=== PATIENT | female | born 1990 | race Caucasian/White ===

== ENCOUNTER 2017-09-11 11:31 | Emergency (ER) | payer OTHER, SELFPAY ==
[2017-09-11 11:33] VITALS: BMI 21.4
[2017-09-11 11:36] VITALS: BP 148/117; PULSE 142; RESP 26; TEMP 36.7; O2SAT 96; BMI 48.0
--- NOTE | 2017-09-11 11:40 | HMH.EDALLER ---
ED Disposition Clinical Impression: Allergic reaction, Dysuria, First trimester Disposition: Home, Self-Care Condition on Discharge: Good Additional Instructions: 1- benary and zantac as needed. 2- avoid amcrobid. 3- start PNV 4- see OB for follow up 5- return as needed. - Critical Care Critical Care Time: No Attestation: On , the high probability of a clinically significant, sudden or life threatening deterioration of the following system(s) required my full and direct attention, intervention and personal management. The time I documented below is in addition to time spent performing reported procedures but includes the following listed in this critical care notation. Medical Decision Making - Medical Records Medical records reviewed: Yes: I reviewed the patient's medical records. Vital Signs: 09/11/17 11:36 Temperature 98.1 F Temperature Source Oral Pulse Rate [Right Brachial] 142 H Respiratory Rate 26 H Blood Pressure [Right Arm] 148/117 Blood Pressure Mean [Right Arm] 127 Blood Pressure Source [Right Arm] Automatic Cuff Blood Pressure Position [Right Arm] Sitting 02 Sat by Pulse Oximetry 96 Oxygen Delivery Method Room Air - Lab Data Lab Results 09/11/17 11:30: WBC 12.3 H, RBC 4.57, Hgb 14.0, Hct 41.3, MCV 90.5, MCH 30.7, MCHC 33.9, RDW 12.5, Plt Count 332, MPV 8.2, Neut % (Auto) 43.2, Lymph % (Auto) 50.7 H, [place] % (Auto) 3.4, Eos % (Auto) 2.2, Baso % (Auto) 0.5, Neut # (Auto) 5.3, Lymph # (Auto) 6.3 H, [place] # (Auto) 0.4, Eos # (Auto) 0.3, Baso # (Auto) 0.1, Total Counted 100, Neutrophils % (Manual) 43, Lymphocytes % (Manual) 43, Atypical Lymphs % 11.0, Monocytes % (Manual) 2, Eosinophils % (Manual) 1, Platelet Estimate Normal, RBC Morphology Normal 09/11/17 11:30: Sodium 140, Potassium 3.4 L, Chloride 103, Carbon Dioxide 23, Anion Gap 17.4 H, BUN 9, Creatinine 1.05 H, Estimated Creat Clear 66, Estimated GFR 62, Est GFR ( Amer) 76, Glucose 169 H, Calcium 8.7, Total Bilirubin 0.6, AST 12 L, ALT 25, Alkaline Phosphatase 92, Total Protein 7.4, Albumin 4.2, Globulin 3.2, Albumin/Globulin Ratio 1.3, HCG, Quant 32 H 09/11/17 12:41: Urine Color Yellow, Urine Appearance Clear, Urine pH 6.0, Ur Specific [place] 1.015, Urine Protein Negative, Urine Glucose (UA) Negative, Urine Ketones Negative, Urine Blood Negative, Urine Nitrate Negative, Urine Bilirubin Negative, Urine Urobilinogen 0.2, Ur Leukocyte Esterase Negative, Urine RBC None, Urine WBC 3-5, Ur Squamous Epith Cells 5-10, Urine Bacteria Trace, Urine Mucus Trace 09/11/17 12:41: Urine HCG, Qual Positive Result diagrams: 09/11/17 11:30 09/11/17 11:30 Orders (Tests/Meds): ED MEDICATIONS Discontinued Medications Generic Name Dose Route Start Last Admin Trade Name Freq PRN Reason Stop Dose Admin Diphenhydramine HCl 50 mg 09/11/17 11:34 09/11/17 11:45 Benadryl 50mg/1ml Vial IV 09/11/17 11:35 50 mg ONCE ONE Administration Famotidine 20 mg 09/11/17 11:34 09/11/17 11:46 Pepcid 20mg/2ml Vial IV 09/11/17 11:35 20 mg ONCE ONE Administration Methylprednisolone Sodium Succinate 125 mg 09/11/17 11:34 09/11/17 11:46 Solu-Medrol 125mg/2ml Vial IV 09/11/17 11:35 125 mg ONCE ONE Administration Metoclopramide HCl 10 mg 09/11/17 11:34 09/11/17 11:46 Reglan 10mg/2ml Vial IVP 09/11/17 11:35 10 mg ONCE ONE Administration - ECG Data Tracing #1 Sinus tachycardia 135/min, nonspecific ST and T-wave changes. No acute. ECG initial impression date: 09/11/17 ECG initial impression time: 11:52 - Joe Inquiry Pt receiving controlled substance: No Joe was queried for this patient: No Medical Decision Making Narrative: She refused an in and out cath. Was unable to void so she was given IV fluids. The patient felt better she actually took a nap she had no more symptoms and she was found to be in her first trimester. The patient and her seemed to be happy wi
--- NOTE | 2017-09-11 11:47 | ED_ITS ---
ED Disposition Clinical Impression: Allergic reaction, Dysuria, First trimester Disposition: Home, Self-Care Condition on Discharge: Good Additional Instructions: 1- benary and zantac as needed. 2- avoid amcrobid. 3- start PNV 4- see OB for follow up 5- return as needed. - Critical Care Critical Care Time: No Attestation: On , the high probability of a clinically significant, sudden or life threatening deterioration of the following system(s) required my full and direct attention, intervention and personal management. The time I documented below is in addition to time spent performing reported procedures but includes the following listed in this critical care notation. Medical Decision Making - Medical Records Medical records reviewed: Yes: I reviewed the patient's medical records. Vital Signs: 09/11/17 11:36 Temperature 98.1 F Temperature Source Oral Pulse Rate [Right Brachial] 142 H Respiratory Rate 26 H Blood Pressure [Right Arm] 148/117 Blood Pressure Mean [Right Arm] 127 Blood Pressure Source [Right Arm] Automatic Cuff Blood Pressure Position [Right Arm] Sitting 02 Sat by Pulse Oximetry 96 Oxygen Delivery Method Room Air - Lab Data Lab Results 09/11/17 11:30: WBC 12.3 H, RBC 4.57, Hgb 14.0, Hct 41.3, MCV 90.5, MCH 30.7, MCHC 33.9, RDW 12.5, Plt Count 332, MPV 8.2, Neut % (Auto) 43.2, Lymph % (Auto) 50.7 H, [place] % (Auto) 3.4, Eos % (Auto) 2.2, Baso % (Auto) 0.5, Neut # (Auto) 5.3, Lymph # (Auto) 6.3 H, [place] # (Auto) 0.4, Eos # (Auto) 0.3, Baso # (Auto) 0.1, Total Counted 100, Neutrophils % (Manual) 43, Lymphocytes % (Manual) 43, Atypical Lymphs % 11.0, Monocytes % (Manual) 2, Eosinophils % (Manual) 1, Platelet Estimate Normal, RBC Morphology Normal 09/11/17 11:30: Sodium 140, Potassium 3.4 L, Chloride 103, Carbon Dioxide 23, Anion Gap 17.4 H, BUN 9, Creatinine 1.05 H, Estimated Creat Clear 66, Estimated GFR 62, Est GFR ( Amer) 76, Glucose 169 H, Calcium 8.7, Total Bilirubin 0.6, AST 12 L, ALT 25, Alkaline Phosphatase 92, Total Protein 7.4, Albumin 4.2, Globulin 3.2, Albumin/Globulin Ratio 1.3, HCG, Quant 32 H 09/11/17 12:41: Urine Color Yellow, Urine Appearance Clear, Urine pH 6.0, Ur Specific [place] 1.015, Urine Protein Negative, Urine Glucose (UA) Negative, Urine Ketones Negative, Urine Blood Negative, Urine Nitrate Negative, Urine Bilirubin Negative, Urine Urobilinogen 0.2, Ur Leukocyte Esterase Negative, Urine RBC None, Urine WBC 3-5, Ur Squamous Epith Cells 5-10, Urine Bacteria Trace, Urine Mucus Trace 09/11/17 12:41: Urine HCG, Qual Positive Result diagrams: 09/11/17 11:30 09/11/17 11:30 Orders (Tests/Meds): ED MEDICATIONS Discontinued Medications Generic Name Dose Route Start Last Admin Trade Name Freq PRN Reason Stop Dose Admin Diphenhydramine HCl 50 mg 09/11/17 11:34 09/11/17 11:45 Benadryl 50mg/1ml Vial IV 09/11/17 11:35 50 mg ONCE ONE Administration Famotidine 20 mg 09/11/17 11:34 09/11/17 11:46 Pepcid 20mg/2ml Vial IV 09/11/17 11:35 20 mg ONCE ONE Administration Methylprednisolone Sodium Succinate 125 mg 09/11/17 11:34 09/11/17 11:46 Solu-Medrol 125mg/2ml Vial IV 09/11/17 11:35 125 mg ONCE ONE Administration Metoclopramide HCl 10 mg 09/11/17 11:34 09/11/17 11:46 Reglan 10mg/2ml Vial IVP 09/11/17 11:35 10 mg ONCE ONE Adminis
[2017-09-11 11:57] LABS: Basophils # 0.1 K/mm3 (0-0.2); Basophils % 0.5 % (0.1-2.0); Eosinophils # 0.3 K/mm3 (0.0-0.4); Eosinophils % 2.2 % (0.1-12.0); Hematocrit 41.3 % (37.0-47.0); Lymphocytes # 6.3 K/mm3 (0.7-4.5); Lymphocytes % 50.7 K/mm3 (10-50); Mean Corpuscular HGB Conc 33.9 g/dL (31.8-35.4); Mean Corpuscular Hemoglobin 30.7 pg (27.0-31.2); Mean Corpuscular Volume 90.5 fl (81-99); Mean Platelet Volume 8.2 fl (7.4-10.4); Monocytes # 0.4 K/mm3 (0.1-1.0); Monocytes % 3.4 % (1.7-9.3); Neutrophils # 5.3 K/mm3 (1.8-7.8); Neutrophils % 43.2 % (37.0-80.0); Platelet Count 332 K/mm3 (142-424); Red Blood Count 4.57 M/mm3 (4.20-5.40); Red Cell Distribution Width 12.5 % (11.5-17.5); White Blood Count 12.3 K/mm3 (4.8-10.8)
[2017-09-11 12:06] LABS: MANUAL DIFFERENTIAL MANUAL DIFFERENTIAL (MANUAL DIFF)
[2017-09-11 12:15] LABS: Alanine Aminotransferase 25 U/L (12-78); Albumin Level 4.2 gm/dL (3.4-5.0); Albumin/Globulin Ratio 1.3 (1.1-1.8); Alkaline Phosphatase 92 U/L (46-116); Anion Gap 17.4 mEq/L (5-15); Aspartate Amino Transferase 12 U/L (15-37); Bilirubin,Total 0.6 mg/dL (0.2-1.0); Blood Urea Nitrogen 9 mg/dL (7-18); Calcium 8.7 mg/dL (8.5-10.1); Carbon Dioxide 23 mmol/L (21.0-32.0); Chloride 103 mmol/L (98-107); Creatinine Clearance Estimated 66 mL/min (0-300); Creatinine,Serum 1.05 mg/dL (0.55-1.02); Estimated Glomerular Filt Rate 62 ml/min (>60); GFR (African American) 76 ML/MIN (>60); Globulin 3.2 gm/dl (1.3-3.2); Glucose 169 mg/dL (74-106); Potassium 3.4 mmoL/L (3.5-5.1); Sodium 140 mmol/L (136-145); Total Protein,Serum 7.4 gm/dL (6.4-8.2)
[2017-09-11 12:19] LABS: HCG,Quantitative 32 mIU/mL
[2017-09-11 12:24] LABS: Eosinophils % 1 % (0-3); Lymphocytes % 43 % (10-50); Monocytes % 2 % (2-9); Neutrophils % 43 % (42-76); Platelet Estimate Normal; RBC Morphology Normal; Total Cells Counted 100
[2017-09-11 12:49] LABS: Microscopic, Urine URINE MICROSCOPIC (MICROSCOPIC)
[2017-09-11 12:52] LABS: Appearance,Urine CLEAR (Clear); Bilirubin,Urine Negative (Negative); Blood, Urine Negative (Negative); Color,Urine YELLOW (Yellow); Glucose,Urine (UA) Negative (Negative); Ketones,Urine Negative (Negative); Leukocyte Esterase,Urine Negative (Negative); Nitrate,Urine Negative (Negative); Protein,Urine Negative (Negative); Specific Gravity, Urine 1.015 (1.005-1.030); Urobilinogen,Urine 0.2 EU/dl (0.2)
[2017-09-11 12:58] LABS: Urine Pregnancy, HCG Qual. Positive (Negative)
[2017-09-11 13:12] LABS: Bacteria,Urine Trace /lpf; Mucus,Urine Trace /lpf
[2017-09-11 13:53] VITALS: BP 135/82; PULSE 85; RESP 18; TEMP 36.8; O2SAT 98
== END 2017-09-11 13:51 | disposition home or self-care (01) ==
PROVIDERS: Emergency Provider Emergency Medicine; Family Provider Internal Medicine Adolescent Medicine; PCP Internal Medicine Adolescent Medicine
DX: R22.0 Localized swelling, mass and lump, head (principal); T37.8X5A Adverse effect of other specified systemic anti-infectives and antiparasitics, initial encounter; R30.0 Dysuria; R00.2 Palpitations; Z32.01 Encounter for pregnancy test, result positive
CPT/HCPCS: 80053; 81001; 81025; 84702; 85007; 85025; 93005; 96365; 99281

== ENCOUNTER → 2017-09-13 10:36 | Outpatient (CLI) | payer OTHER, SELFPAY ==
[2017-09-13 11:01] LABS: Basophils # 0.1 K/mm3 (0-0.2); Basophils % 0.5 % (0.1-2.0); Eosinophils # 0.1 K/mm3 (0.0-0.4); Eosinophils % 0.7 % (0.1-12.0); Hematocrit 38.2 % (37.0-47.0); Hemoglobin 12.7 g/dL (12.2-16.2); Lymphocytes # 2.6 K/mm3 (0.7-4.5); Lymphocytes % 25.7 K/mm3 (10-50); Mean Corpuscular HGB Conc 33.2 g/dL (31.8-35.4); Mean Corpuscular Hemoglobin 30.5 pg (27.0-31.2); Mean Corpuscular Volume 91.8 fl (81-99); Monocytes # 0.4 K/mm3 (0.1-1.0); Monocytes % 3.9 % (1.7-9.3); Neutrophils # 6.9 K/mm3 (1.8-7.8); Neutrophils % 69.1 % (37.0-80.0); Platelet Count 250 K/mm3 (142-424); Red Blood Count 4.16 M/mm3 (4.20-5.40); Red Cell Distribution Width 12.6 % (11.5-17.5)
[2017-09-13 12:22] LABS: HCG,Quantitative 113 mIU/mL
[2017-09-14 07:14] LABS: HIV Screen 4th Generation wRfx Non Reactive (Non Reactive)
[2017-09-17 12:13] LABS: Hepatitis B Surface Antigen Negative (Negative); Hepatitis C Antibody <0.1 s/co ratio (0.0-0.9); Rapid Plasma Reagin Ab Titer Non Reactive (NonRea<1:1); Rubella Antibodies, IgG 1.61 index (Immune >0.99)
== END ==
PROVIDERS: Family Provider Internal Medicine Adolescent Medicine; PCP Internal Medicine Adolescent Medicine; Visit Provider Nurse Practitioner Obstetrics & Gynecology
DX: Z34.90 Encounter for supervision of normal pregnancy, unspecified, unspecified trimester (principal)
CPT/HCPCS: 36415; 84702; 85025; 86592; 86703; 86762; 86850; 87340; 87380; G0432

== ENCOUNTER → 2017-10-11 16:21 | Outpatient (CLI) | payer OTHER, SELFPAY ==
--- NOTE | 2017-10-11 16:24 | US_ITS ---
US OB transvaginal HISTORY: Early OB ultrasound for dates ITS.REASON: US OB- Dates ORDERING PHYSICIAN: Boy Lazar MD PATIENT AGE: 27 years COMPARISON: None FINDINGS: An intrauterine gestational sac is present with a pole with a crown-rump length of 1.4cm correlating to gestational age of 7 weeks 5 days. heart tones are present with an FHR of 164 bpm's. Yolk sac is noted. The amnion and chorion have not yet fused. Adnexa: Adnexa. IMPRESSION: Live intrauterine gestation at 7 weeks 5 days. Estimated due date by ultrasound is 05/25/2018.
== END ==
PROVIDERS: Family Provider Internal Medicine Adolescent Medicine; PCP Internal Medicine Adolescent Medicine; Visit Provider Nurse Practitioner Obstetrics & Gynecology
DX: O26.841 Uterine size-date discrepancy, first trimester (principal)
CPT/HCPCS: 76830

== ENCOUNTER → 2017-12-08 16:18 | Outpatient (CLI) | payer OTHER, SELFPAY ==
[2017-12-14 00:15] LABS: AFP Value 56.3 ng/mL (.); DIA MoM 3.05 (.); DSR (Second Trimester) 1 IN 1419 (.); OSBR Risk 1 IN 2155 (.); Results Report (.); hCG MoM 2.75 (.); uE3 MoM 1.19 (.); uE3 Value 0.95 ng/mL (.)
[2017-12-14 15:16] LABS: Gestat. Age Based On EDD (.)
== END ==
PROVIDERS: Visit Provider Nurse Practitioner Obstetrics & Gynecology
DX: Z34.90 Encounter for supervision of normal pregnancy, unspecified, unspecified trimester (principal); Z3A.16 16 weeks gestation of pregnancy
CPT/HCPCS: 36415; 82106

== ENCOUNTER → 2018-01-06 15:32 | Outpatient (CLI) | payer OTHER, SELFPAY ==
--- NOTE | 2018-01-06 15:33 | US_ITS ---
US OB /maternal detail: INDICATION: ITS.REASON: US OB Complete 20wk+ Anatomy scan ORDERING PHYSICIAN: Boy Lazar MD PATIENT AGE: 27 years TECHNIQUE: ultrasound transabdominal scanning. COMPARISON: No previous relevant studies. FINDINGS: Single viable intrauterine gestation. Breech position. Placenta: Anterior placenta grade 1. There is a posterior accessory lobe There is average amount fluid. The cervix appears satisfactory. Closed and measuring 3 cm in length. Complete survey performed and was unremarkable on the submitted images as in PACS. No discrete anomalies identified on survey imaging by technologist. Active fetus. Three-vessel cord with satisfactory umbilical cord insertion. 4- chamber heart noted. Survey of brain & ventricles. Face and neck survey unremarkable. Diaphragm and chest views unremarkable. Abdomen: Both kidneys noted and unremarkable. Stomach noted and satisfactory. Spine: Survey of the spine satisfactory with no anomalies identified nor imaged. Both arms and legs noted. Amniotic Fluid: Adequate. Maternal adnexa: No significant findings. Measurements: Average ultrasound age 20w2d. Gestational Age 20w1d. Estimated due date by ultrasound age 1005/24/2018. Estimated weight 328 grams. This is 39th percentile based on estimated due date BPD = 20w5d OFD = 20w4d HC = 19w6d AC = 20w1d FL = 20w1d Heart Rate = 150 bpm Cerebellum = 20w0d Humerus = 20w4d HC/AC is 1.17 (1.09-1.26). CI is 80%. FL/BPD is 67%. FL/AC is 22%. IMPRESSION: There is a live intrauterine gestation in breech presentation at 20 weeks 2 days with an estimated due date by ultrasound of 05/24/2018. All parameters correlate. No obvious anomalies. Please see above for detail
== END ==
PROVIDERS: Family Provider Internal Medicine Adolescent Medicine; PCP Internal Medicine Adolescent Medicine; Visit Provider Nurse Practitioner Obstetrics & Gynecology
DX: Z36.0 Encounter for antenatal screening for chromosomal anomalies (principal)
CPT/HCPCS: 76811

== ENCOUNTER 2018-04-19 14:36 | Inpatient (IN) ==
[2018-04-19 15:38] LABS: Basophils % 0.3 % (0.1-2.0); Eosinophils # 0.1 K/mm3 (0.0-0.4); Eosinophils % 0.6 % (0.1-12.0); Hematocrit 36.7 % (37.0-47.0); Hemoglobin 12.7 g/dL (12.2-16.2); Lymphocytes % 19.8 K/mm3 (10-50); Mean Corpuscular HGB Conc 34.5 g/dL (31.8-35.4); Mean Corpuscular Hemoglobin 32.6 pg (27.0-31.2); Mean Corpuscular Volume 94.5 fl (81-99); Mean Platelet Volume 9.6 fl (7.4-10.4); Monocytes # 0.4 K/mm3 (0.1-1.0); Monocytes % 3.7 % (1.7-9.3); Neutrophils # 7.5 K/mm3 (1.8-7.8); Neutrophils % 75.5 % (37.0-80.0); Platelet Count 193 K/mm3 (142-424); Red Blood Count 3.89 M/mm3 (4.20-5.40); Red Cell Distribution Width 13.5 % (11.5-17.5); White Blood Count 9.9 K/mm3 (4.8-10.8)
[2018-04-19 15:44] LABS: Activated Partial Thrombo Time 29.4 seconds (23.6-34.0); Anion Gap 12.7 mEq/L (5-15); Calcium 8.6 mg/dL (8.5-10.1); INR 0.91 (0.9-1.1); Potassium 3.7 mmoL/L (3.5-5.1); Prothrombin Time 9.4 seconds (9.4-11.8); Uric Acid 5.5 mg/dL (2.6-7.2)
--- NOTE | 2018-04-19 17:02 | History & Physical Report ---
OB - H&P: HPI Antepartum - History of Present Illness Chief complaint: -induced hypertension History of present illness: She is a 19-year-old 1 para 0 at 35 weeks gestational age. She was seen in my office today and her blood pressure was 140/100. She has had a mild headache on and off. She has had significant swelling over the last couple of weeks. - History of Present Criteria for establishing EDC:: LMP confirmed by 1st trimester US care: good care Ultrasounds: normal 1st trimester US, normal mid trimester US Obstetrical complications: preeclampsia Medical complications: none [facility] History I have reviewed the patient's past medical history: Yes Medical History: Denies:: Anxiety, Asthma, Depression Other Surgeries: Yes: Colonoscopy, Other. No: Amputation: No Fractures: No - *Social History Smoking Status: Former smoker Alcohol Intake: never Substance Use Type: denies use - Psychiatric History Pschychiatric History:: Denies:: Anxiety, Depression *Family Hx:: Cancer, Diabetes, Heart Attack, Kidney Disease, Hypertension, Hyperlipidemia, Thyroid Disorder Para: 0 Review of Systems - Review of Systems Review of systems:: pertinent systems reviewed and negative unless documented below Meds Home Medications Medication Instructions Recorded Confirmed Type cetirizine 10 mg tablet 10 mg PO ONCE 09/13/17 History multivitamin with minerals-folic 200 mcg PO DAILYDM 09/13/17 History acid 200 mcg chewable tablet diphenhydramine 25 mg capsule 25 mg PO QHS PRN 01/11/18 History ranitidine 150 mg tablet 150 mg PO BID tab 01/11/18 04/19/18 History Ferrous Sulfate 325 mg PO DAILY 04/19/18 History docusate sodium 100 mg capsule 100 mg PO DAILY 04/19/18 History Allergies Allergy/AdvReac Type Severity Reaction Status Date / Time nitrofurantoin Allergy Intermediate Rash Verified 04/19/18 13:57 [From Macrobid] OB - H&P: Exam - Physical Exam Vital signs: Temp Pulse Resp BP Pulse Ox 98.2 F 93 H 20 146/96 98 04/19/18 15:34 04/19/18 15:34 04/19/18 15:34 04/19/18 15:34 04/19/18 15:34 - Constitutional no acute distress - Routine HEENT Exam Head: Present: normocephalic Eye: Present: EOMI, PERRL ENT: Present: mucous membranes moist - Routine Neck Exam Present: supple, full ROM - Routine Respiratory Exam Absent: accessory muscle use (good air entry bilaterally), respiratory distress, wheezes, crackles - Routine Cardiovascular Exam Present: RRR. Absent: murmur - Routine Abdominal Exam Present: soft, normoactive bowel sounds. Absent: tenderness, distended, guarding - Routine Rectal Exam Patient deferred: visual exam, digital exam - Routine Exam Patient deferred: external exam, groin exam, perineal exam - Routine Extremities Exam Present: full ROM. Absent: cyanosis, edema - Routine Skin Exam Present: intact. Absent: cyanosis - Routine Neurological Exam Present: alert, oriented X3, normal reflexes She has no clonus - Routine Psychiatric Exam Present: normal affect OB - Results - Labs Labs: Short CBC 04/19/18 Range/Units 15:10 WBC 9.9 (4.8-10.8) K/mm3 Hgb 12.7 (12.2-16.2) g/dL Hct 36.7 L (37.0-47.0) % Plt Count 193 (142-424) K/mm3 BMP 04/19/18 15:10 Sodium 134 L Potassium 3.7 Chloride 101 Carbon Dioxide 24 BUN 6 L Creatinine 0.61 Glucose 73 L Calcium 8.6 Liver Function 04/19/18 Range/Units 15:10 AST 15 (15-37) U/L ALT 18 (12-78) U/L OB - A/P Antepartum (1) induced hypertension Current visit: Yes Status: Acute - Additional Plan Planning to breastfeed?: Yes Plan: expectant management Additional Information:: She has increased blood pressure in my office. Now that she is here on bedrest her blood pressure has settled somewhat. We will get a 24-hour urine as well as routine PIH blood work. We will continue with close observation. Her blood pressure rises we will consider magnesium sulfate. We will also consider delivery. I have given her steroids as well.
--- NOTE | 2018-04-20 08:47 | Progress Note ---
Internal Medicine - PN: Subj *Date: 04/20/18 *Time: 08:45 Interval history: She has been observed overnight and she seems to be doing a little better. Her blood pressures are in the 120-130 range over 70-80 range on bedrest. She denies any headache. Her blood work was essentially normal. Her uric acid is 5.5 which is slightly elevated. Ultrasound revealed a baby at the 27th percentile with normal mood and good biophysical profile. Nonstress test reactive. Stiff her laboratory investigations are normal. We are awaiting a 24-hour urine. Exam Vital signs and Labs for Last 24 Hours: Temp Pulse Resp BP Pulse Ox 98.2 F 97 H 18 131/75 98 04/19/18 15:34 04/19/18 19:18 04/19/18 19:18 04/19/18 19:18 04/19/18 15:34 Laboratory Results - last 24 hr 04/19/18 15:10: WBC 9.9, RBC 3.89 L, Hgb 12.7, Hct 36.7 L, MCV 94.5, MCH 32.6 H, MCHC 34.5, RDW 13.5, Plt Count 193, MPV 9.6, Neut % (Auto) 75.5, Lymph % (Auto) 19.8, [place] % (Auto) 3.7, Eos % (Auto) 0.6, Baso % (Auto) 0.3, Neut # (Auto) 7.5, Lymph # (Auto) 2.0, [place] # (Auto) 0.4, Eos # (Auto) 0.1, Baso # (Auto) 0.0 04/19/18 15:10: PT 9.4, INR 0.91, APTT 29.4, Fibrinogen 442, D-Dimer 1760 H* 04/19/18 15:10: Sodium 134 L, Potassium 3.7, Chloride 101, Carbon Dioxide 24, Anion Gap 12.7, BUN 6 L, Creatinine 0.61, Estimated Creat Clear 153, Estimated GFR 117, Est GFR ( Amer) 141, Glucose 73 L, Uric Acid 5.5, Calcium 8.6, AST 15, ALT 18 04/19/18 15:10: Blood Type A Positive, Antibody Screen Negative 04/19/18 15:10: Magnesium 1.4 I & O for Last 24 hours: Intake & Output 09/16/18 09/17/18 09/18/18 09/19/18 11:59 11:59 11:59 11:59 Output Total 325 / 325 Balance -325 / -325 Weight 153 lb - Constitutional no acute distress Assessment and Plan (1) induced hypertension Current visit: Yes Status: Acute Category: Medical Code(s): O13.9 - Gestational [-induced] hypertension without significant proteinuria, unspecified trimester - Assessment and plan all Dx Assessment and Plan for all problems:: We will continue with inpatient care today. We will of her 24-hour urine. We may consider sending her home on bedrest if her blood pressure stays normalized.
--- NOTE | 2018-04-21 08:13 | Discharge Summary ---
General - General Admission date:: 04/19/18 Discharge date: 04/21/18 HPI HPI: She is a 27-year-old 1 para 0 at 35 weeks gestational age. She had increased blood pressure in the 140/100 range when seen in my office. As result of that we admitted her physician. She denied headache epigastric pain or scotomata. Hospital Course Hospital Course: She was admitted and observed that she had a 24-hour urine. Her blood work was all normal. Uric acid was 5.5. While hospitalized her blood pressures have come down and have remained in the 120-130 range over 70-80 range. This morning her blood pressure is 120/61. She denies headache or epigastric pain. She had a 24 hour urine that showed 439 mg of protein. She continues to have 1+ in her lower legs. She denies headache. We have also given her a course of steroids. Since her blood pressure has stabilized we will plan to send her home. We will follow-up with her on a daily basis with nonstress tests and blood pressure checks. She will follow-up in my office in about 3 days time. She will be seen in labor and delivery daily for her nonstress tests and blood pressure checks. She will return to the hospital if she has epigastric pain or headache. If her blood pressure continues to rise then we will expedite delivery. Objective Vital signs: Temp Pulse Resp BP Pulse Ox 98.2 F 81 18 130/80 98 04/19/18 15:34 04/20/18 18:18 04/19/18 19:18 04/20/18 18:18 04/19/18 15:34 no acute distress Results Labs on day of discharge: Labs from last 24 hours 04/19/18 15:30 Urine Total Volume 4100 H Ur Total Protein 24 Hr 459 H Urine Total Protein 11.2 DS: Diagnosis - Discharge Diagnosis (1) induced hypertension Status: Acute Discharge Plan - Patient Discharge Instructions ACTIVITY: Bed rest DIET: continue same diet Patient Instructions: Pre-eclampsia and -induced Hypertension (Alternative Therapy), Pre-eclampsia - Follow up Plan Disposition: Home, Self-Group Home Medications: Home Medications Medication Instructions Recorded Confirmed Type cetirizine 10 mg tablet 10 mg PO DAILY 09/13/17 04/20/18 History multivitamin with minerals-folic 200 mcg PO DAILY 09/13/17 04/20/18 History acid 200 mcg chewable tablet ranitidine 150 mg tablet 150 mg PO BID tab 01/11/18 04/19/18 History Ferrous Sulfate 325 mg PO DAILY 04/19/18 04/20/18 History docusate sodium 100 mg capsule 100 mg PO DAILY 04/19/18 04/20/18 History Prescriptions/Medication Reconciliation: Continue cetirizine 10 mg tablet 10 mg PO DAILY ranitidine 150 mg tablet 150 mg PO BID tab multivitamin with minerals-folic acid 200 mcg chewable tablet 200 mcg PO DAILY docusate sodium 100 mg capsule 100 mg PO DAILY Ferrous Sulfate 325 mg PO DAILY
[2018-04-21 11:18] VITALS: BP 134/77
== END 2018-04-21 10:20 | disposition home or self-care (01) ==
LOC: OB 14:36
PROVIDERS: ADMIT Nurse Practitioner Obstetrics & Gynecology; ATTEND Nurse Practitioner Obstetrics & Gynecology

== ENCOUNTER 2018-04-22 16:24 | Outpatient (CLI) | payer OTHER, SELFPAY ==
[2018-04-22] VITALS (7 sets, daily range): BP systolic 137–164; BP diastolic 80–99; PULSE 72–80; RESP 20; TEMP 36.7; BMI 28.5
== END 2018-04-22 18:05 | disposition home or self-care (01) ==
LOC: OBOUT 16:26 → OB 16:27
PROVIDERS: PCP Internal Medicine Adolescent Medicine; Visit Provider Nurse Practitioner Obstetrics & Gynecology
DX: O13.3 Gestational [pregnancy-induced] hypertension without significant proteinuria, third trimester (principal); Z3A.35 35 weeks gestation of pregnancy
CPT/HCPCS: 59025

== ENCOUNTER 2018-04-23 12:33 | Outpatient (CLI) | payer OTHER, SELFPAY ==
[2018-04-23 12:45] VITALS: BMI 28.0
== END 2018-04-23 14:10 | disposition home or self-care (01) ==
LOC: OBOUT 12:35 → OB 12:35
PROVIDERS: PCP Nurse Practitioner Obstetrics & Gynecology; Visit Provider Obstetrics & Gynecology
DX: O13.3 Gestational [pregnancy-induced] hypertension without significant proteinuria, third trimester (principal); Z3A.35 35 weeks gestation of pregnancy
CPT/HCPCS: 59025

== ENCOUNTER 2018-04-24 12:31 | Outpatient (CLI) | payer OTHER, SELFPAY ==
[2018-04-24 12:52] VITALS: BP 144/74; PULSE 86; RESP 17; TEMP 36.7; BMI 29.2
== END 2018-04-24 13:30 | disposition home or self-care (01) ==
LOC: OBOUT 12:32 → OB 12:33
PROVIDERS: PCP Obstetrics & Gynecology; Visit Provider Obstetrics & Gynecology
DX: O13.3 Gestational [pregnancy-induced] hypertension without significant proteinuria, third trimester (principal); Z3A.35 35 weeks gestation of pregnancy
CPT/HCPCS: 59025

== ENCOUNTER 2018-04-26 16:14 | Outpatient (CLI) | payer OTHER, SELFPAY ==
[2018-04-26 16:27] VITALS: BP 139/78; PULSE 78; RESP 20; TEMP 36.7; O2SAT 100; BMI 29.2; BMI 29.4
[2018-04-26 16:50] LABS: Basophils % 0.3 % (0.1-2.0); Eosinophils # 0.2 K/mm3 (0.0-0.4); Eosinophils % 2.1 % (0.1-12.0); Hematocrit 35.7 % (37.0-47.0); Hemoglobin 12.2 g/dL (12.2-16.2); Lymphocytes # 2.1 K/mm3 (0.7-4.5); Lymphocytes % 20.8 K/mm3 (10-50); Mean Corpuscular Volume 94.2 fl (81-99); Mean Platelet Volume 9.4 fl (7.4-10.4); Monocytes # 0.5 K/mm3 (0.1-1.0); Monocytes % 5.4 % (1.7-9.3); Neutrophils # 7.2 K/mm3 (1.8-7.8); Neutrophils % 71.4 % (37.0-80.0); Platelet Count 200 K/mm3 (142-424); Red Cell Distribution Width 13.1 % (11.5-17.5); White Blood Count 10.1 K/mm3 (4.8-10.8)
[2018-04-26 17:00] LABS: Alanine Aminotransferase 16 U/L (12-78); Anion Gap 10.1 mEq/L (5-15); Aspartate Amino Transferase 12 U/L (15-37); Blood Urea Nitrogen 10 mg/dL (7-18); Calcium 8.8 mg/dL (8.5-10.1); Carbon Dioxide 27 mmol/L (21.0-32.0); Chloride 104 mmol/L (98-107); Creatinine Clearance Estimated 134 mL/min (0-300); Creatinine,Serum 0.69 mg/dL (0.55-1.02); Estimated Glomerular Filt Rate 101 ml/min (>60); GFR (African American) 122 ML/MIN (>60); Glucose 92 mg/dL (74-106); Potassium 4.1 mmoL/L (3.5-5.1); Sodium 137 mmol/L (136-145); Uric Acid 5.6 mg/dL (2.6-7.2)
[2018-04-26 17:24] LABS: Activated Partial Thrombo Time 27.7 seconds (23.6-34.0); Fibrinogen 414 mg/dL (204-500); Prothrombin Time 9.3 seconds (9.4-11.8)
[2018-04-26 17:28] LABS: D-Dimer 1600 ng/mL (0-400)
== END 2018-04-26 18:00 | disposition home or self-care (01) ==
LOC: OBOUT 16:15 → OB 16:17
PROVIDERS: PCP Internal Medicine Adolescent Medicine; Visit Provider Nurse Practitioner Obstetrics & Gynecology
DX: O13.3 Gestational [pregnancy-induced] hypertension without significant proteinuria, third trimester (principal); Z3A.35 35 weeks gestation of pregnancy
CPT/HCPCS: 36415; 59025; 80048; 84450; 84460; 84550; 85025; 85378; 85384; 85610; 85730

== ENCOUNTER 2018-04-28 16:44 | Outpatient (CLI) | payer OTHER, SELFPAY ==
[2018-04-28 16:52] VITALS: BMI 28.7
[2018-04-28 17:18] VITALS: BP 122/83; PULSE 85; RESP 16; TEMP 36.9; O2SAT 97
== END 2018-04-28 17:25 | disposition home or self-care (01) ==
LOC: OBOUT 16:45 → OB 16:45
PROVIDERS: PCP Nurse Practitioner Obstetrics & Gynecology; Visit Provider Obstetrics & Gynecology
DX: O13.3 Gestational [pregnancy-induced] hypertension without significant proteinuria, third trimester (principal); Z3A.36 36 weeks gestation of pregnancy
CPT/HCPCS: 59025

== ENCOUNTER 2018-04-29 16:04 | Outpatient (CLI) | payer OTHER, SELFPAY ==
[2018-04-29 16:10] VITALS: BMI 27.8
[2018-04-29 16:32] VITALS: BP 127/88; PULSE 78; RESP 18; TEMP 36.8; O2SAT 97
== END 2018-04-29 16:40 | disposition home or self-care (01) ==
LOC: OBOUT 16:05 → OB 16:05
PROVIDERS: PCP Nurse Practitioner Obstetrics & Gynecology; Visit Provider Nurse Practitioner Obstetrics & Gynecology
DX: O13.3 Gestational [pregnancy-induced] hypertension without significant proteinuria, third trimester (principal); Z3A.36 36 weeks gestation of pregnancy
CPT/HCPCS: 59025

== ENCOUNTER 2018-04-30 14:51 | Outpatient (CLI) | payer OTHER, SELFPAY ==
[2018-04-30 15:00] VITALS: BP 124/68; PULSE 95; RESP 17; TEMP 36.6; O2SAT 97; BMI 28.3
== END 2018-04-30 15:30 | disposition home or self-care (01) ==
LOC: OBOUT 14:53 → OB 14:54
PROVIDERS: PCP Internal Medicine Adolescent Medicine; Visit Provider Nurse Practitioner Obstetrics & Gynecology
DX: O13.3 Gestational [pregnancy-induced] hypertension without significant proteinuria, third trimester (principal); Z3A.36 36 weeks gestation of pregnancy
CPT/HCPCS: 59025

== ENCOUNTER 2018-05-01 12:26 | Outpatient (CLI) | payer OTHER, SELFPAY ==
[2018-05-01 12:41] VITALS: BMI 28.3
[2018-05-01 12:59] VITALS: BP 128/79; PULSE 86; RESP 16; O2SAT 97; BMI 28.3
[2018-05-01 13:08] LABS: Microscopic, Urine URINE MICROSCOPIC (MICROSCOPIC)
[2018-05-01 13:15] LABS: Basophils # 0.1 K/mm3 (0-0.2); Basophils % 0.6 % (0.1-2.0); Eosinophils # 0.3 K/mm3 (0.0-0.4); Eosinophils % 2.7 % (0.1-12.0); Hematocrit 34.4 % (37.0-47.0); Hemoglobin 11.6 g/dL (12.2-16.2); Lymphocytes # 1.9 K/mm3 (0.7-4.5); Lymphocytes % 20.8 K/mm3 (10-50); Mean Corpuscular HGB Conc 33.6 g/dL (31.8-35.4); Mean Corpuscular Volume 95.2 fl (81-99); Mean Platelet Volume 9.8 fl (7.4-10.4); Monocytes # 0.5 K/mm3 (0.1-1.0); Monocytes % 5.3 % (1.7-9.3); Neutrophils # 6.5 K/mm3 (1.8-7.8); Neutrophils % 70.6 % (37.0-80.0); Platelet Count 196 K/mm3 (142-424); Red Blood Count 3.62 M/mm3 (4.20-5.40); Red Cell Distribution Width 13.5 % (11.5-17.5); White Blood Count 9.3 K/mm3 (4.8-10.8)
[2018-05-01 13:31] LABS: Appearance,Urine SL CLOUDY (Clear); Bilirubin,Urine Negative (Negative); Blood, Urine Negative (Negative); Color,Urine YELLOW (Yellow); Glucose,Urine (UA) Negative (Negative); Ketones,Urine Negative (Negative); Leukocyte Esterase,Urine TRACE (Negative); Nitrate,Urine Negative (Negative); Protein,Urine TRACE (Negative); Specific Gravity, Urine 1.025 (1.005-1.030); Urobilinogen,Urine 0.2 EU/dl (0.2)
[2018-05-01 13:37] LABS: Alanine Aminotransferase 16 U/L (12-78); Aspartate Amino Transferase 10 U/L (15-37); Blood Urea Nitrogen 10 mg/dL (7-18); Calcium 8.3 mg/dL (8.5-10.1); Carbon Dioxide 23 mmol/L (21.0-32.0); Chloride 104 mmol/L (98-107); Creatinine Clearance Estimated 149 mL/min (0-300); Creatinine,Serum 0.62 mg/dL (0.55-1.02); Estimated Glomerular Filt Rate 114 ml/min (>60); GFR (African American) 138 ML/MIN (>60); Glucose 83 mg/dL (74-106); Sodium 135 mmol/L (136-145); Uric Acid 5.9 mg/dL (2.6-7.2)
[2018-05-01 13:40] LABS: D-Dimer 1350 ng/mL (0-400)
--- NOTE | 2018-05-01 13:40 | PC.NURSE ---
D-DIMER [address] VINSON, NO NEW ORDERS
[2018-05-01 13:55] LABS: Bacteria,Urine 4+ /lpf; Mucus,Urine 4+ /lpf
[2018-05-01 14:07] LABS: Activated Partial Thrombo Time 29.3 seconds (23.6-34.0); Fibrinogen 432 mg/dL (204-500); INR 0.89 (0.9-1.1); Prothrombin Time 9.2 seconds (9.4-11.8)
== END 2018-05-01 13:15 | disposition home or self-care (01) ==
LOC: OBOUT 12:27 → OB 12:29
PROVIDERS: PCP Internal Medicine Adolescent Medicine; Visit Provider Nurse Practitioner Obstetrics & Gynecology
DX: O13.3 Gestational [pregnancy-induced] hypertension without significant proteinuria, third trimester (principal); Z3A.36 36 weeks gestation of pregnancy
CPT/HCPCS: 36415; 59025; 80048; 81001; 84450; 84460; 84550; 85025; 85378; 85384; 85610; 85730; 87086

== ENCOUNTER 2018-05-03 16:09 | Inpatient (IN) ==
[2018-05-03 17:01] LABS: Basophils % 0.5 % (0.1-2.0); Eosinophils # 0.2 K/mm3 (0.0-0.4); Eosinophils % 2.1 % (0.1-12.0); Hematocrit 33.2 % (37.0-47.0); Hemoglobin 11.1 g/dL (12.2-16.2); Lymphocytes % 21.3 K/mm3 (10-50); Mean Corpuscular HGB Conc 33.5 g/dL (31.8-35.4); Mean Corpuscular Hemoglobin 31.8 pg (27.0-31.2); Mean Corpuscular Volume 94.7 fl (81-99); Mean Platelet Volume 9.9 fl (7.4-10.4); Monocytes # 0.5 K/mm3 (0.1-1.0); Neutrophils # 6.7 K/mm3 (1.8-7.8); Neutrophils % 71.2 % (37.0-80.0); Platelet Count 184 K/mm3 (142-424); Red Blood Count 3.51 M/mm3 (4.20-5.40); Red Cell Distribution Width 13.7 % (11.5-17.5); White Blood Count 9.3 K/mm3 (4.8-10.8)
[2018-05-03 17:07] LABS: Anion Gap 14.1 mEq/L (5-15); Calcium 8.6 mg/dL (8.5-10.1); Potassium 4.1 mmoL/L (3.5-5.1); Uric Acid 6.5 mg/dL (2.6-7.2)
--- NOTE | 2018-05-03 17:13 | History & Physical Report ---
OB - H&P: HPI Antepartum - History of Present Illness Chief complaint: -induced hypertension, History of present illness: She is a 28-year-old 1 para 0 at 37 weeks gestational age. She has been followed over the last few weeks with increased blood pressure. We started her on labetalol 200 mg twice daily and bedrest. She does have some labile hypertension but interval her blood pressures have normalized. As result of the increased blood pressure we have decided to induce her labor at 37 weeks. - History of Present Criteria for establishing EDC:: LMP confirmed by 1st trimester US care: good care Ultrasounds: normal 1st trimester US, normal mid trimester US Obstetrical complications: preeclampsia Medical complications: none [facility] History I have reviewed the patient's past medical history: Yes Medical History: Denies:: Anxiety, Asthma, Depression Other Surgeries: Yes: Colonoscopy, Other. No: Amputation: No Fractures: No - *Social History Smoking Status: Former smoker Alcohol Intake: never Substance Use Type: denies use - Psychiatric History Pschychiatric History:: Denies:: Anxiety, Depression *Family Hx:: Cancer, Diabetes, Heart Attack, Kidney Disease, Hypertension, Hyperlipidemia, Thyroid Disorder Para: 0 Review of Systems - Review of Systems Review of systems:: pertinent systems reviewed and negative unless documented below Meds Home Medications Medication Instructions Recorded Confirmed Type cetirizine 10 mg tablet 10 mg PO DAILY 09/13/17 05/03/18 History multivitamin with minerals-folic 200 mcg PO DAILY 09/13/17 05/03/18 History acid 200 mcg chewable tablet ranitidine 150 mg tablet 150 mg PO BID tab 01/11/18 05/03/18 History Ferrous Sulfate 325 mg PO DAILY 04/19/18 05/03/18 History docusate sodium 100 mg capsule 100 mg PO DAILY 04/19/18 05/03/18 History Labetalol HCl 200 mg PO BID 04/23/18 05/03/18 History Allergies Allergy/AdvReac Type Severity Reaction Status Date / Time nitrofurantoin Allergy Intermediate Rash Verified 05/02/18 16:17 [From Macrobid] OB - H&P: Exam - Physical Exam Vital signs: Temp Resp Pulse Ox 98.0 F 20 100 05/03/18 16:31 05/03/18 16:31 05/03/18 16:31 - Constitutional no acute distress - Routine HEENT Exam Head: Present: normocephalic Eye: Present: EOMI, PERRL ENT: Present: mucous membranes moist - Routine Neck Exam Present: supple, full ROM - Routine Respiratory Exam Absent: accessory muscle use (good air entry bilaterally), respiratory distress, wheezes, crackles - Routine Cardiovascular Exam Present: RRR. Absent: murmur - Routine Abdominal Exam Present: soft, normoactive bowel sounds. Absent: tenderness, distended, guarding - Routine Rectal Exam Patient deferred: visual exam, digital exam - Routine Exam Patient deferred: external exam, groin exam, perineal exam - Routine Extremities Exam Present: full ROM. Absent: cyanosis, edema - Routine Skin Exam Present: intact. Absent: cyanosis - Routine Neurological Exam Present: alert, oriented X3 - Routine Psychiatric Exam Present: normal affect OB - Results - Labs Labs: Short CBC 05/03/18 Range/Units 16:40 WBC 9.3 (4.8-10.8) K/mm3 Hgb 11.1 L (12.2-16.2) g/dL Hct 33.2 L (37.0-47.0) % Plt Count 184 (142-424) K/mm3 BMP 05/03/18 16:40 Sodium 137 Potassium 4.1 Chloride 104 Carbon Dioxide 23 BUN 11 Creatinine 0.60 Glucose 82 Calcium 8.6 Liver Function 05/03/18 Range/Units 16:40 AST 11 L (15-37) U/L ALT 16 (12-78) U/L OB - A/P Antepartum (1) induced hypertension Current visit: No Status: Acute - Additional Plan Planning to breastfeed?: Yes Plan: induction Additional Information:: She is 2 cm 50% effaced and station -2. I have inserted Cervidil and we will expect a vaginal delivery tomorrow. Nonstress test is reactive. We are awaiting her blood work.
[2018-05-03 17:16] LABS: Microscopic, Urine URINE MICROSCOPIC (MICROSCOPIC)
[2018-05-03 17:21] LABS: Appearance,Urine CLEAR (Clear); Bilirubin,Urine Negative (Negative); Blood, Urine Negative (Negative); Color,Urine YELLOW (Yellow); Glucose,Urine (UA) Negative (Negative); Ketones,Urine Negative (Negative); Leukocyte Esterase,Urine Negative (Negative); Protein,Urine 1+ (Negative); Specific Gravity, Urine >= 1.030 (1.005-1.030); Urobilinogen,Urine 0.2 EU/dl (0.2)
[2018-05-03 17:22] LABS: Activated Partial Thrombo Time 28.7 seconds (23.6-34.0); INR 0.88 (0.9-1.1); Prothrombin Time 9.1 seconds (9.4-11.8)
[2018-05-03 17:37] LABS: Bacteria,Urine 2+ /lpf; Mucus,Urine 3+ /lpf; RBC,Urine Occasional #/hpf (0-3)
--- NOTE | 2018-05-04 08:03 | Progress Note ---
Labor Note - Subjective: Date: 05/04/18 Time: 08:02 regular contraction - Objective: Contractions:: every 4-5 minutes Cervical Dilation:: 2-3 Effacement:: 50% Station: -2 Membranes: artificially ruptured Comment:: Clear fluid - Fetus: Monitoring?: Yes monitoring type:: Internal and External Comment:: I inserted an IUPC - Assessment: Labor progressing?: Yes Cephalopelvic disproportion?: No Patient Problems: All Active Problems induced hypertension (Acute) (Acute) Allergic reaction (Acute) Dysuria (Acute) First trimester (Acute) - Plan: Anesthesia for epidural?: No Continue to labor down?: Yes Plan for ?: No Continue to monitor?: Yes Start pushing?: No
--- NOTE | 2018-05-04 11:08 | Progress Note ---
Labor Note - Subjective: Date: 05/04/18 Time: 11:08 regular contraction - Objective: Contractions:: every 2-3 minutes Cervical Dilation:: 3-4 Effacement:: 90% Station: -1 Membranes: artificially ruptured - Fetus: Monitoring?: Yes monitoring type:: Internal and External - Assessment: Labor progressing?: Yes Cephalopelvic disproportion?: No Patient Problems: All Active Problems induced hypertension (Acute) (Acute) Allergic reaction (Acute) Dysuria (Acute) First trimester (Acute) - Plan: Anesthesia for epidural?: No Continue to labor down?: Yes Plan for ?: No Continue to monitor?: Yes Start pushing?: No
--- NOTE | 2018-05-04 12:46 | Progress Note ---
[facility] Anesthesia Checklist - Patient Identification Patient Identification: Arm Band - Structural Data Admitted From: Inpatient Planned Operative Procedure/s: labor epidural Consent for Planned Operative Procedure(s) Verified: Yes Verified Documents: Surgical Consent, History and Physical - NPO Status Verified Time NPO: 00:00 - Additional verifications Anesthesia Reactions: No - Airway Assessment C-Spine Mobility Assessed: Yes TMJ Mobility Assessed: Yes Dentition: Good Dentition - Neurological Assessment Level of Consciousness: Awake, Alert - Anesthesia Plan Anesthesia Risk discussed: Yes Anesthesia Plan: Verified ASA Class: II Anesthesia Type: Epidural [facility] History I have reviewed the patient's past medical history: Yes Medical History: Denies:: Anxiety, Asthma, Depression Other Surgeries: Yes: Colonoscopy, Other. No: Amputation: No Fractures: No - *Social History Smoking Status: Former smoker Alcohol Intake: never Substance Use Type: denies use - Psychiatric History Pschychiatric History:: Denies:: Anxiety, Depression *Family Hx:: Cancer, Diabetes, Heart Attack, Kidney Disease, Hypertension, Hyperlipidemia, Thyroid Disorder Para: 0
--- NOTE | 2018-05-04 13:43 | Progress Note ---
Labor Note - Subjective: Date: 05/04/18 Time: 13:42 regular contraction - Objective: Contractions:: every 4-5 minutes Cervical Dilation:: 4-5 Effacement:: 90% Station: -2 Membranes: artificially ruptured - Fetus: monitoring type:: Internal - Assessment: Labor progressing?: Yes Cephalopelvic disproportion?: No Patient Problems: All Active Problems induced hypertension (Acute) (Acute) Allergic reaction (Acute) Dysuria (Acute) First trimester (Acute) - Plan: Anesthesia for epidural?: Yes Continue to labor down?: Yes Plan for ?: No Continue to monitor?: Yes Start pushing?: No Comment:: She has some decreased variability so we will go ahead and start immune vision. I have inserted a scalp.
--- NOTE | 2018-05-04 17:18 | Procedure Note ---
- Delivery Note Delivery Date:: 05/04/18 Delivery Time:: 16:56 Anesthesia Type: Epidural Was labor medically induced?: Yes Induction method: per misoprostol protocol Gestational age (weeks): 37 delivered prior to 39 weeks?: Yes Justification for early elective delivery:: Pre-eclampsia Gender: Female at 1 minute: 8 at 5 minutes: 9 AF:: Clear fluid LAC or MLE?: LAC Delivery Procedure:: She is a 28-year-old 1 para 0 who is 37 weeks gestational age. She has been followed over the last few weeks with increase in her blood pressure. She has been recently home on bedrest but had an increase in her uric acid. She had a 24-hour urine that showed 429 mg of protein over the 24-hour period. Her blood pressures have been elevated and most recently she has been on labetalol. After having discussed the risks and benefits we elected to induce her labor at 37 weeks. She had Cervidil placed on the evening of May 03, 2018. On the morning of May 04 she had IV oxytocin started and had her membranes ruptured. Under labor epidural she progressed to full dilation and delivered spontaneously a live born female child at 4:56 PM in the afternoon of May 04, 2018. On deliver the head it was noted that there was a tight nuchal cord. I elected to deliver the rest the 's body atraumatically. The cord was then reduced. The oropharynx and nasopharynx were bulb suctioned. The baby cried spontaneously. We allow the cord to continue to pulsate for 1 minute. Then doubly clamped and cut the cord. We then placed the baby on the mother's abdomen for further care. The nurses assigned Apgars of 8 at 1 minute and 9 at 5 minutes. We then obtained cord blood as well as cord pH. She received IV oxytocin and using gentle traction on the cord and countertraction on the fundus I was able to easily deliver the placenta intact. He had a normal three-vessel cord. She had a small first-degree laceration that was repaired with a single [id number] 3-0 Vicryl Rapide suture. Her estimated blood loss was approximately 400 cc. Her template layout worker is Dr. Latham. Laceration:: vaginal
[2018-05-05 05:56] LABS: Hematocrit 29.6 % (37.0-47.0)
--- NOTE | 2018-05-05 08:16 | Progress Note ---
Internal Medicine - PN: Subj *Date: 05/05/18 (n) *Time: 08:15 Interval history: She continues to do well. She is eating and. She is breast-feeding. Her lochia is normal. Exam Vital signs and Labs for Last 24 Hours: Temp Resp Pulse Ox 98.0 F 20 100 05/03/18 16:31 05/03/18 16:31 05/03/18 16:31 Laboratory Results - last 24 hr 05/04/18 17:05: Cord ABG pH 7.30 L 05/05/18 05:45: Hgb 10.0 L, Hct 29.6 L I & O for Last 24 hours: Intake & Output 05/02/18 05/03/18 05/04/18 05/05/18 11:59 11:59 11:59 11:59 Weight 153 lb Microbiology Reports for the Last 24 Hours: Microbiology 05/03/18 14:26 Urine,Clean Catch Urine Culture - Preliminary NO GROWTH AFTER 24 HOURS - Constitutional no acute distress Assessment and Plan (1) induced hypertension Current visit: No Status: Acute Qualifiers: Trimester: third trimester Qualified Code(s): O13.3 - Gestational [-induced] hypertension without significant proteinuria, third trimester Category: Medical Code(s): O13.9 - Gestational [-induced] hypertension without significant proteinuria, unspecified trimester - Assessment and plan all Dx Assessment and Plan for all problems:: She is doing well this morning. Her blood pressure is normal. Is breast- feeding. We will plan to send her home tomorrow.
[2018-05-05 10:14] VITALS: BP 137/85
--- NOTE | 2018-05-06 08:39 | Discharge Summary ---
General - General Admission date:: 05/03/18 Discharge date: 05/06/18 HPI HPI: She is a 28-year-old 1 now para 1 who is a 7 weeks gestational age. She is been followed for the last few weeks with increase in her blood pressure. She had been started on labetalol and at 37 weeks we elected to induce her labor. Hospital Course Hospital Course: She had Cervidil placed on the evening of May 03, 2018 and then the following morning of May 04 was started on IV oxytocin. She had her membranes ruptured and under labor epidural progress to full dilation. She delivered spontaneous liveborn female child at 4:56 PM in the afternoon of May 04, 2018. The baby was a liveborn female child weighing 5 pounds 8 ounces with Apgars of 8 at 1 minute and 9 at 5 minutes. She has well and has remained afebrile throughout her hospitalization. Her blood pressures are in the 130-140 range over 80-90 range. She denies headache, scotomata or epigastric. She continues take labetalol 200 mg twice daily. She is breast-feeding. She has a positive blood, she is rubella immune and was group B streptococcus negative. She is discharged home to follow-up with me in 2 weeks time. She will continue with her vitamins and iron. She is taking [id number] analgesics. She will continue with breast-feeding. Rhogam Administration: Not Indicated Objective Vital signs: Temp Pulse Resp BP Pulse Ox 98.1 F 85 18 137/85 100 05/05/18 08:30 05/05/18 08:30 05/05/18 08:30 05/05/18 08:30 05/03/18 16:31 no acute distress DS: Diagnosis - Discharge Diagnosis (1) induced hypertension Status: Acute Discharge Plan - Patient Discharge Instructions ACTIVITY: No heavy lifting DIET: continue same diet Patient Instructions: Pre-eclampsia and -induced Hypertension (Alternative Therapy), Depression, Hemorrhage, [facility] Post Discharge Instructions - Follow up Plan Disposition: Home, Self-Senior Care Medications: Home Medications Medication Instructions Recorded Confirmed Type cetirizine 10 mg tablet 10 mg PO DAILY 09/13/17 05/03/18 History multivitamin with minerals-folic 200 mcg PO DAILY 09/13/17 05/03/18 History acid 200 mcg chewable tablet ranitidine 150 mg tablet 150 mg PO BID tab 01/11/18 05/03/18 History Ferrous Sulfate 325 mg PO DAILY 04/19/18 05/03/18 History docusate sodium 100 mg capsule 100 mg PO DAILY 04/19/18 05/03/18 History Labetalol HCl 200 mg PO BID 04/23/18 05/03/18 History Prescriptions/Medication Reconciliation: Continue cetirizine 10 mg tablet 10 mg PO DAILY ranitidine 150 mg tablet 150 mg PO BID tab multivitamin with minerals-folic acid 200 mcg chewable tablet 200 mcg PO DAILY docusate sodium 100 mg capsule 100 mg PO DAILY Ferrous Sulfate 325 mg PO DAILY Labetalol HCl 200 mg PO BID
== END 2018-05-06 13:35 | disposition home or self-care (01) ==
LOC: OB 16:09
PROVIDERS: ADMIT Nurse Practitioner Obstetrics & Gynecology; ATTEND Nurse Practitioner Obstetrics & Gynecology

== ENCOUNTER → 2018-11-24 16:15 | Outpatient (CLI) | payer OTHER, SELFPAY ==
--- NOTE | 2018-11-24 16:18 | CT_ITS ---
CT abdomen pelvis wo con CLINICAL INDICATION: ITS.REASON: RT FLANK PAIN,H/O STONES ORDERING PHYSICIAN: ZULMA Oshea PATIENT AGE: 28 years COMPARISON: 07/04/2013 TECHNIQUE: Axial images obtained with sagittal and coronal reformats. All CT scans at the facility use one or more dose reduction, viz: automated exposure control, ma/kV adjustment per patient size (including targeted exams where dose is matched to indication, i.e. head), or iterative reconstruction technique. PROCEDURE: Oral Contrast: None IV Contrast: None . FINDINGS: No acute finding in the lower chest. The liver, gallbladder, spleen, adrenal glands, pancreas, kidneys and ureters have an unremarkable appearance. No renal or ureteral calculi are evident. There is some minimal hyperdensity noted within the gallbladder suggesting stones or sludge. There are mildly prominent fluid-filled loops of small bowel within the pelvis with a few scattered air-fluid levels. Curvilinear gas density noted along the wall of the cecum and ascending colon suspicious for pneumatosis coli. No free air evident. No evidence of gas within the portal venous system. No pelvic mass or abnormal fluid collection in the pelvis. There is mild amount of retained colonic feces within the cecum. The appendix is not clearly delineated. Minimal hyperdensity noted in the endometrial region at the undersurface of the uterus nonspecific. No acute bony anomalies evident. There is a mild grade 1 spondylitic spondylolisthesis of L5 on S1. IMPRESSION: 1. No renal or ureteral calculi. 2. Fluid-filled loops of small bowel with a few air-fluid levels which may be seen with enteritis. Stippled gas-like density noted along the colon wall in the cecum and ascending colon region suspicious for pneumatosis coli. Pseudo pneumatosis coli seen with gas trapped between feces Gastrografin mild posterior mucosal folds or gas bubbles adherent to the bowel wall is included in the differential diagnosis. Repeat study with IV and oral contrast with delayed imaging may be of further value if symptoms persist. 3. There is some heterogeneous density in the gallbladder suggesting gallstones and/or sludge
== END ==
PROVIDERS: PCP Physician Assistant; Visit Provider Physician Assistant
DX: R10.9 Unspecified abdominal pain (principal)
CPT/HCPCS: 74176

== ENCOUNTER → 2020-11-19 12:50 | Outpatient (POV) | payer OTHER, SELFPAY | PROVIDERS: Visit Provider Dermatology | DX: Z00.00 Encounter for general adult medical examination without abnormal findings (principal) ==

== ENCOUNTER → 2021-03-16 19:25 | Outpatient (CLI) | payer OTHER, SELFPAY ==
[2021-03-16 20:06] LABS: Influenza A, PCR Not Detected (NotDetected); Influenza B, PCR Not Detected (NotDetected)
[2021-03-16 20:34] LABS: Coronavirus 19, PCR Detected (NotDetected)
--- NOTE | 2021-03-16 20:45 | PC.NURSE ---
RELAYED POSITIVE COVID RESULT
== END ==
PROVIDERS: PCP Internal Medicine Adolescent Medicine; Visit Provider Nurse Practitioner Family
DX: Z20.822 Contact with and (suspected) exposure to COVID-19 (principal); U07.1 COVID-19; R05 Cough
CPT/HCPCS: U0003

== ENCOUNTER 2024-07-04 08:06 | Emergency (ER) | payer OTHER, SELFPAY ==
[2024-07-04 08:20] VITALS: BP 125/81; PULSE 82; RESP 18; TEMP 36.9; O2SAT 97; BMI 22.6
--- NOTE | 2024-07-04 08:36 | ED_ITS ---
Discharge Plan Disposition Patient Disposition: Home, Self-Care Condition: Good Prescriptions Prescriptions: New azithromycin [Zithromax Z-Jovanny] 250 mg tablet See Rx Instructions .ROUTE .COMPLEX 5 Days Qty: 6 0RF Rx Instructions: For 250 mg dose pack: take 500 mg today (day 1), then 250 mg for 4 days (days 2-5) benzonatate 100 mg capsule 100 mg PO TID PRN (Reason: cough) Qty: 30 0RF methylprednisolone [Medrol (Jovanny)] 4 mg tablets,dose pack See Rx Instructions .Route .COMPLEX 6 Days Qty: 21 0RF Rx Instructions: taper pack; No Action Lo Loestrin Fe 1 mg-10 mcg (24)/10 mcg (2) tablet 1 tab PO DAILY Qty: 84 3RF escitalopram oxalate 20 mg tablet 20 mg PO DAILY Qty: 30 2RF Referrals Follow up/Referrals: Stefano Barnes MD [Primary Care Provider] - See instructions Activity Restrictions/Add. Instructions Additional Instructions/Restrictions: *Monitor Temp, Over the counter Motrin or Tylenol as directed/as needed Tylenol every 4 hours and Motrin every 6 hours (as long as your family doctor has told you that you can take it) for fever or pain. and straight to ER if unable to lower temp less than 101.0 after medication given *Warm salt water gargles may help to soothe the throat *Throat Lozenges? *Warm fluids like tea with honey may help to soothe the throat? *Sleep elevated *Humidifier/Vaporizer Start oral Antibiotics and steriods tomorrow Follow up IMMEDIATELY for new or worsening symptoms or no Noticeable improvement over the next 48-72 hours. 911 for difficulty breathing or swallowing Clinical Impressions Clinical Impression: Sinusitis Qualifiers: Sinusitis location: unspecified location Chronicity: unspecified Qualified Code(s): J32.9 - Chronic sinusitis, unspecified Instructions Patient Instructions: Sinusitis, DI for Sinusitis Print Language Print Language: O[place]i Discharge ED Provider: Aleyda Mcgraw [facility] [place] General Stated complaint: chest congestion cough Mode of Arrival: Ambulatory Source of Information: Patient Time Seen by Provider: 07/04/24 08:36 Description of Symptoms (Recalled from Triage Doc. by RN): COUGH, CHEST, CONGESTION, SINUS PRESSURE X ONE WEEK HEENT Symptoms (Recalled from RN notes): Yes Resp Symptoms (Recalled from RN notes): Yes Skin Symptoms (Recalled from RN notes): No MS Symptoms (Recalled from RN notes): No Functional Status (Recalled from RN notes): WNL History of Present Illness Provider Complaint: Patient states that she has been sick for over a week with cough, sinus congestion, chest congestion and pressure in her sinuses States that she has been taking OTC mucinex but hasnt helped much and today it was sti ll bothering her so she came in to get checked Related Data Previous Rx's ?Medication ?Instructions ?Recorded Lo Loestrin Fe 1 mg-10 mcg (24)/10 1 tab PO DAILY #84 tabs 10/04/23 mcg (2) tablet (norethindrone-e.estradiol-iron) escitalopram oxalate 20 mg tablet 20 mg PO DAILY #30 tabs 07/03/24 azithromycin 250 mg tablet See Rx Instructions PO .COMPLEX 5 07/04/24 (Zithromax Z-Jovanny) days #6 tabs benzonatate 100 mg capsule 100 mg PO TID PRN cough #30 caps 07/04/24 methylprednisolone 4 mg tablets in See Rx Instructions .Route 07/04/24 a dose pack (Medrol (Jovanny)) .COMPLEX 6 days #21 tabs Allergies Allergy/AdvReac Type Severity Reaction Status Date / Time nitrofurantoin (From Allergy Intermediate Rash Verified 10/04/23 15:42 Macrobid) Worker's Comp Is this a Worker's Comp case?: No [facility] Disclaimer: The information contained in this section may have been updated after the patient was seen, as this information can be updated by other users. Medical History (Updated 07/04/24 @ 08:41 by Aleyda Mcgraw APRN) Contraception management Family history of breast cancer Surgical History History of extraction of renal calculus History of esophagogastroduodenoscopy (EGD) Hx of colonoscopy Family History Other Cancer Diabetes Hypertension Social History (Reviewed 10/04/23 @ 15:45 by BHARAT Crabtree Smoking Status: Current every day smoker tobacco type: cigarettes packs per day: 1 alcohol intake: current alcohol intake frequency: holidays/special occasions only substance use type: denies use current occupational status: employed Travel in the last 8 weeks: None ROS Obtained: Yes All systems reviewed & no additional complaints except as documented and Yes Systems reviewed as appropriate & no additional complaints except as documented Constitutional Constitutional: Reports system reviewed and no additional complaints, except as documented, Reports as per HPI and Reports headache(s) ENT Ears, Nose, Mouth, and Throat: Reports system reviewed and no additional complaints, except as documented, Reports as per HPI, Reports headache(s), Reports sinus pain and Reports sinus pressure Cardiovascular Cardiovascular: Reports system reviewed and no additional complaints, except as documented and Reports as per HPI Respiratory Respiratory: Reports system reviewed and no additional complaints, except as documented, Reports as per HPI, Denies shortness of breath, Reports chest congestion and Reports cough Gastrointestinal Gastrointestingal: Reports system reviewed and no additional complaints, except as documented and as per HPI Neurologic Neurologic: Reports headache(s) Physical Exam General General appearance: alert and in no apparent distress ENT ENT exam: Present mucous membranes moist Expanded ENT Exam TM/Canal exam: Bilateral TM: bulging (mild redness noted) Nose exam: Present sinus tenderness Throat exam: Present other (Pharyngeal erythema noted with PND) Respiratory Respiratory exam: Present normal lung sounds bilaterally; Absent respiratory distress or wheezes Cardiovascular Cardiovascular exam: Present regular rate, normal rhythm and normal heart sounds Abdominal Exam Abdominal exam: Present soft and normal bowel sounds; Absent distention or tenderness Neurological Exam Neurological exam: Present alert, oriented X3 and normal gait Medical Decision Making Medical Records Screening: Per USPSTF and CDC recommendations, given the prevalence of disease in our efe on, it is our hospital?s policy to screen for HIV and viral Hepatitis for all patients aged 18 and over and those with ongoing risk factors. Joe Inquiry Pt receiving controlled substance: No Joe was queried for this patient: No Vital Signs: 07/04/24 08:20 Temperature 98.5 F Temperature Source Oral Pulse Rate [Left Radial] 82 Respiratory Rate 18 Blood Pressure [Left Arm] 125/81 Blood Pressure Mean [Left Arm] 95 02 Sat by Pulse Oximetry 97 Medical Decision Narrative: Patient states that she has taken azithromyicin in the past without reactions or complications
[2024-07-04] MEDS: cefTRIAXone 1GM VIAL 1 GM IM (08:45)
[2024-07-04] MEDS: METHYLPREDNISOLONE SOD SUCC 125MG VIAL 125 MG IM (08:46)
[2024-07-04] MEDS: LIDOCAINE 1% 5ML PF VIAL IM (08:46)
[2024-07-04 09:00] VITALS: BP 125/81; PULSE 82; RESP 18; TEMP 36.9
== END 2024-07-04 09:01 | disposition home or self-care (01) ==
PROVIDERS: Emergency Provider Nurse Practitioner; PCP Internal Medicine Adolescent Medicine
DX: J32.9 Chronic sinusitis, unspecified (principal); R05.9 Cough, unspecified; R09.81 Nasal congestion; R09.89 Other specified symptoms and signs involving the circulatory and respiratory systems
CPT/HCPCS: 96372; 99212; G0381; J0696; J2919